=== PATIENT | male | born 1960 | race Two or more races ===

== ENCOUNTER 2019-03-31 23:03 | Emergency (ER) | payer SELFPAY ==
[~2019-03-31] VITALS: Ht 162.6 cm; Wt 121.8 kg
[2019-03-31 23:11] VITALS: Ht 162.6 cm; Wt 121.8 kg
[2019-04-01 01:03] VITALS: BP 163/85
== END 2019-04-01 01:03 | disposition home or self-care (01) ==
LOC: ED 23:03
DX: S01.01XA Laceration without foreign body of scalp, initial encounter (principal); S09.8XXA Other specified injuries of head, initial encounter; Z88.0 Allergy status to penicillin; W07.XXXA Fall from chair, initial encounter; Y93.89 Activity, other specified; Y92.89 Other specified places as the place of occurrence of the external cause; Y99.8 Other external cause status
CPT/HCPCS: J2001